=== PATIENT | female | born 1970 | race Caucasian/White ===

== ENCOUNTER → 2019-12-24 | Outpatient (CLI) | payer BC | END | disposition home or self-care (01) | LOC: LABWHC1 08:45 | PROVIDERS: ATTEND Radiology Radiation Oncology | DX: C50.212 Malignant neoplasm of upper-inner quadrant of left female breast (principal); Z17.0 Estrogen receptor positive status [ER+] | CPT/HCPCS: 81025 ==

== ENCOUNTER → 2020-09-04 | Outpatient (CLI) | payer BC ==
--- NOTE | 2020-09-05 10:50 | MM ---
Reason for exam: clinical finding. Last mammogram was performed 1 year and 3 months ago. History: Patient has history of breast cancer at age 49. Malignant excisional biopsy of the left breast. Lumpectomy of the left breast. Chemotherapy. Radiation therapy of the left breast. Physical Findings: Nurse Summary: 1.5-cm nodule in the left breast at 12 o'clock (nurse db). MG 3D Diag Mammo W/Cad OSORIO Bilateral CC and MLO view(s) were taken. Prior study comparison: May 31, 2019, mammogram. The breast tissue is heterogeneously dense. This may lower the sensitivity of mammography. No suspicious calcifications are seen. Stable post lumpectomy and radiation therapy changes. Focal asymmetry upper outer right breast. Deduction mammoplasty changes right breast. These results were verbally communicated with the patient and result sheet given to the patient on 09/04/20. ASSESSMENT: Incomplete: need additional imaging evaluation, BI-RAD 0 RECOMMENDATION: Ultrasound of both breasts.
--- NOTE | 2020-09-05 11:04 | USB ---
Reason for exam: additional evaluation requested from abnormal screening. History: Patient has history of breast cancer at age 49. Malignant excisional biopsy of the left breast. Lumpectomy of the left breast. Chemotherapy. Radiation therapy of the left breast. US Breast BILAT Right complete breast ultrasound includes all four quadrants, the retroareolar region and axilla. Finding demonstrates a 0.4 x 0.3 x 0.4cm lesion too small to characterize at 12 o'clock and a 0.5 x 0.7 x 0.5cm hypoechoic lesion at 12 o'clock, biopsy recommended. Left complete breast ultrasound includes all four quadrants, the retroareolar region and axilla. Finding demonstrates a 0.5 x 0.4 x 0.5cm lesion too small to characterize at 10 o'clock and a 1.0 x 1.0 x 1.0cm hypoechoic lesion at 11 o'clock, probable lumpectomy, 6 month follow up recommended. These results were verbally communicated with the patient and result sheet given to the patient on 09/04/20. ASSESSMENT: Suspicious, BI-RAD 4 Suspicious, BI-RAD 4 abnormality in the right breast. Probably benign, BI-RAD 3 finding in the left breast. RECOMMENDATION: Ultrasound core biopsy of the right breast. Manage patient on a clinical basis. Called office with mammographic findings and has scheduled an appointment for the patient for 09/29/20 at 10:[address] Booker. Biopsy scheduled for 09/19/20 at 10:30. PRELIMINARY REPORT CALLED AND FAXED TO DR. BOOKER ON 09/05/20. Ultrasound of the left breast in 6 months.
== END | disposition home or self-care (01) ==
LOC: RADUSWWP 12:41
PROVIDERS: ATTEND Internal Medicine Hematology & Oncology
DX: N64.52 Nipple discharge (principal); I89.0 Lymphedema, not elsewhere classified; Z85.3 Personal history of malignant neoplasm of breast
CPT/HCPCS: 77062; 77066

== ENCOUNTER → 2020-09-19 | Day surgery (SDC) | payer BC ==
[2020-09-19 10:01] VITALS: PULSE 78; TEMP 98.2
[2020-09-19 11:32] VITALS: BP 139/80; RESP 16
--- NOTE | 2020-09-19 15:33 | USB ---
EXAMINATION TYPE: US biopsy breast VAD RT, MG post biopsy diagnostic mammo RT wo CAD DATE OF EXAM: 09/19/2020 CLINICAL HISTORY: 50-year-old female R92.8 ABNORMAL MAMMOGRAM. Personal history of left breast cancer treated recently. TECHNIQUE: Ultrasound guided core biopsy of the right breast. COMPARISON: 09/04/2020 FINDINGS: The procedure of ultrasound guided core biopsy was explained to the patient. Benefits, alternatives, and risks were discussed. An informed consent was then obtained. The indeterminate hypoechoic area which appears vertically oriented on some of the images but more round and circumscribed on other images at the 12:00 position is identified for biopsy. The patient was placed in supine positioning for imaging and for the procedure. The overlying skin was prepped and draped in usual sterile fashion. Lidocaine was used for as anesthetic into the skin and subcutaneous tissue up to area of concern in the 12:00 right breast. Under ultrasound guidance, a 12-gauge vacuum assisted biopsy gun device was used to obtain 6 core samples. Following this, a wing clip was left in lesion. The patient tolerated the procedure well without any immediate complication. The patient was kept in the radiology department for short stay after the procedure and then discharged home in stable condition. Postprocedure mammogram shows the microclip in the 12:00 position just anterior to an area of focal asymmetry/island of dense tissue. IMPRESSION: Successful, uncomplicated ultrasound guided core biopsy of area of concern in the 12:00 right breast, full pathology results to follow. RECOMMENDATION: 1. Await pathology results of the ultrasound-guided right breast biopsy. If benign results, six-month follow-up mammogram can be performed. 2. Six-month follow-up ultrasound left breast 10:00 and 11:00 as recommended on 09/04/2020. The left o'clock palpable finding within the left breast probably corresponds to the patient's lumpectomy site. Pathology Results: Benign RIGHT BREAST, 12:00 POSITION, CORE BIOPSY: Mild chronic inflammation with peripheral blood elements, focal fibrosis, and focal microcalcification. Focal features suggestive of fat necrosis present. Current specimen negative for diagnostic in situ or invasive carcinoma. Recommendation Follow up ultrasound of the right breast in 6 months. THANIA
== END ==
LOC: RADUSWWP 09:29
PROVIDERS: ATTEND Internal Medicine Hematology & Oncology
DX: N61.0 Mastitis without abscess (principal); R92.0 Mammographic microcalcification found on diagnostic imaging of breast; N60.31 Fibrosclerosis of right breast; R92.8 Other abnormal and inconclusive findings on diagnostic imaging of breast; Z85.3 Personal history of malignant neoplasm of breast; Z88.0 Allergy status to penicillin
CPT/HCPCS: 88305; 77065; 19083; A4648; J2001

== ENCOUNTER → 2021-04-13 | Outpatient (CLI) | payer BC ==
--- NOTE | 2021-04-13 11:16 | MM ---
Reason for exam: follow-up at short interval from prior study. Last mammogram was performed 7 months ago. History: Patient is postmenopausal and has history of breast cancer at age 49. Benign US biopsy breast VAD RT of the right breast, September 19, 2020. Malignant excisional biopsy of the left breast. Lumpectomy of the left breast. Chemotherapy. Radiation therapy of the left breast. Taking antineoplastic for 2 years. Physical Findings: Nurse Summary: 0.5 x 1cm nodule in the left breast at 12 o'clock (nurse ts). MG 3D Diag Mammo W/Cad OSORIO Bilateral CC, MLO, and spot compression MLO view(s) were taken. ML and LM view(s) were taken of the left breast. Prior study comparison: September 19, 2020, right breast MG diagnostic mammo RT wo CAD. September 04, 2020, bilateral MG 3d diag mammo w/cad OSORIO. May 31, 2019, mammogram. There are scattered fibroglandular densities. There is chronic nodularity in the left breast medially. Post reduction mammoplasty changes. Superior posterior left MLO focal asymmetry disperses on additional views. 12 o'clock left palpable marker. Suspect a subtle area of developing fat necrosis underlying. These results were verbally communicated with the patient and result sheet given to the patient on 04/13/21. ASSESSMENT: Incomplete: need additional imaging evaluation, BI-RAD 0 RECOMMENDATION: Ultrasound of both breasts. (as ordered)
--- NOTE | 2021-04-13 11:19 | USB ---
Reason for exam: additional evaluation requested from abnormal screening. History: Patient is postmenopausal and has history of breast cancer at age 49. Benign US biopsy breast VAD RT of the right breast, September 19, 2020. Malignant excisional biopsy of the left breast. Lumpectomy of the left breast. Chemotherapy. Radiation therapy of the left breast. Taking antineoplastic for 2 years. US Breast BILAT Right complete breast ultrasound includes all four quadrants, the retroareolar region and axilla. Finding demonstrates a 0.3 x 0.3 x 0.4cm lesion too small to characterize at 12 o'clock. Left complete breast ultrasound includes all four quadrants, the retroareolar region and axilla. Finding demonstrates a 0.3 x 0.3 x 0.4cm lesion too small to characterize at 10 o'clock versus 5 x 4 x 4mm previously, follow up recommended and a 0.8 x 0.7 x 1.2cm mixed lesion at 11 o'clock versus 1.0 x 1.0 x 1.0cm previously, possibly early fat necrosis, continued follow up recommended. These results were verbally communicated with the patient and result sheet given to the patient on 04/13/21. ASSESSMENT: Probably benign, BI-RAD 3 RECOMMENDATION: Ultrasound of the left breast in 6 months.
== END | disposition home or self-care (01) ==
LOC: RADMAMWWP 08:06
PROVIDERS: ATTEND Internal Medicine Hematology & Oncology
DX: N64.89 Other specified disorders of breast (principal); Z85.3 Personal history of malignant neoplasm of breast; Z78.0 Asymptomatic menopausal state
CPT/HCPCS: 77062; 77066

== ENCOUNTER → 2021-10-12 | Outpatient (CLI) | payer BC ==
--- NOTE | 2021-10-12 15:31 | USB ---
Reason for Exam: Follow-up at short interval from prior study. Last screening mammogram was performed 6 month(s) ago. Patient History: Menarche at age 11. First Full-Term at age 24. Postmenopausal. Breast cancer, age 49. 2020, Bilateral Reduction. Malignant Excisional Biopsy on the left side. Lumpectomy on the Left side. 09/19/2020, Benign Core Biopsy on the right side. Chemotherapy. Radiation Therapy, left. Film Views: Left CC views were taken. Left MLO views were taken. Prior Study Comparison: 09/04/2020 Bilateral Diagnostic Mammogram, [facility]. 09/19/2020 Right Diagnostic Mammogram, [facility]. 04/13/2021 Bilateral Diagnostic Mammogram, [facility]. Tissue Density: Left: There are scattered fibroglandular densities. Findings: Analyzed By CAD. Mammogram Architectural distortion - There is architectural distortion in the upper outer quadrant of the left breast with clips and overlying skin thickening consistent with post treatment changes redemonstrated. Technique: Method: Targeted. Findings: The upper inner quadrant of the left breast and the area of palpable concern of the left breast were scanned. Breast Ultrasound . Overall Assessment: Benign, BI-RAD 2 Assessment: MG 3D diag mammo w/cad LT - Left: Benign, BI-RAD 2. US breast limited LT - Left: Benign, BI-RAD 2. Management: Diagnostic Mammogram of both breasts in 1 year. A clinical breast exam by your physician is recommended on an annual basis and results should be correlated with mammographic findings.
== END | disposition home or self-care (01) ==
LOC: RADMAMWWP 13:45
PROVIDERS: ATTEND Internal Medicine Hematology & Oncology
DX: R92.8 Other abnormal and inconclusive findings on diagnostic imaging of breast (principal); Z78.0 Asymptomatic menopausal state; Z92.3 Personal history of irradiation
CPT/HCPCS: 77061; 77065

== ENCOUNTER → 2022-04-14 | Outpatient (CLI) | payer BC ==
--- NOTE | 2022-04-14 14:44 | MM ---
Reason for Exam: Follow-up at short interval from prior study. Last screening mammogram was performed 12 month(s) ago. Patient History: Menarche at age 11. First Full-Term at age 24. Postmenopausal. Patient has history of breast feeding. Breast cancer, age 49. 2020, Bilateral Reduction. Malignant Excisional Biopsy on the left side. Lumpectomy on the Left side. 09/19/2020, Benign Core Biopsy on the right side. Chemotherapy. Radiation Therapy, left. Tissue Density: There are scattered fibroglandular densities. Analyzed By CAD. Overall Assessment: Negative, BI-RAD 1 Management: Diagnostic Mammogram of both breasts in 1 year. Electronically signed and approved by: Kenrick Chatman DO
== END | disposition home or self-care (01) ==
LOC: RADMAMWWP 11:00
PROVIDERS: ATTEND Internal Medicine Hematology & Oncology
DX: Z85.3 Personal history of malignant neoplasm of breast (principal); Z78.0 Asymptomatic menopausal state; Z90.12 Acquired absence of left breast and nipple
CPT/HCPCS: 77062; 77066

== ENCOUNTER 2022-06-05 17:36 | Emergency (ER) | payer BC ==
--- NOTE | 2022-06-05 18:25 | ED ---
General Adult HPI - General Chief complaint: Fall Stated complaint: fall - side pain Source: patient, family, RN notes reviewed Mode of arrival: ambulatory Limitations: no limitations - History of Present Illness Initial comments: The purpose of this note is for advanced triage purposes: 52-year-old female presents to the emergency department for evaluation of left-sided rib pain status post fall 90 minutes prior to arrival. Patient states she slipped and fell in the bathroom causing injury to the left side. Complains of pain and contusion along the lateral aspect of the left lower ribs. Reports pain with breathing and movement. Did not take anything to treat her symptoms prior to arrival. Denies any other injuries or complaints at this time. States she did not hit her head. Does not take blood thinning medicines. No neck or back pain. - Related Data Home Medications Medication Instructions Recorded Confirmed Anastrozole [Arimidex] 1 mg PO DAILY 09/15/20 06/05/22 lisinopriL [Prinivil] 10 mg PO DAILY 09/15/20 06/05/22 Alendronate Sodium [Fosamax] 70 mg PO WE 06/05/22 06/05/22 DULoxetine HCL [Cymbalta] 30 mg PO BID 06/05/22 06/05/22 Ergocalciferol [Vitamin D2 (1250 1,250 mcg PO FR 06/05/22 06/05/22 Mcg = [id number] Iu)] Vitamin D3 + Vitamin K2 1 tab PO DAILY 06/05/22 06/05/22 Previous Rx's Medication Instructions Recorded Cyclobenzaprine [Flexeril] 10 mg PO TID PRN #15 tab 06/05/22 Lidocaine 5% Patch [Lidoderm 5% 1 each TP DAILY PRN 7 Days #7 patch 06/05/22 Patch] Allergies Allergy/AdvReac Type Severity Reaction Status Date / Time Penicillins Allergy Rash/Hives Verified 06/05/22 21:23 Review of Systems ROS Statement: Those systems with pertinent positive or pertinent negative responses have been documented in the HPI. ROS Other: All systems not noted in ROS Statement are negative. Past Medical History Past Medical History: Cancer, Hypertension Additional Past Medical History / Comment(s): Hx of breast cancer 2019. Lumpectomy/radiation/chemo History of Any Multi-Drug Resistant Organisms: None Reported Past Surgical History: Breast Surgery Past Anesthesia/Blood Transfusion Reactions: No Reported Reaction Past Psychological History: No Psychological Hx Reported Smoking Status: Never smoker Past Alcohol Use History: Rare Past Drug Use History: None Reported General Exam Limitations: no limitations General appearance: alert, in distress (Well-developed, well-nourished female in moderate distress due to pain.) ENT exam: Present: normal exam, mucous membranes moist Neck exam: Present: normal inspection, full ROM Respiratory exam: Present: normal lung sounds bilaterally, chest wall tenderness (Left lateral chest wall tenderness along the lower rib border with developing contusion. There is bony crepitus.). Absent: respiratory distress, wheezes, rales, rhonchi, stridor Cardiovascular Exam: Present: regular rate, normal rhythm, normal heart sounds. Absent: systolic murmur, diastolic murmur, rubs, gallop, clicks GI/Abdominal exam: Present: soft, normal bowel sounds. Absent: distended, tenderness, guarding, rebound, rigid Back exam: Absent: paraspinal tenderness, vertebral tenderness Neurological exam: Present: alert, oriented X3, normal gait Psychiatric exam: Present: anxious Course Vital Signs 06/05/22 06/05/22 06/06/22 18:03 19:45 00:00 Temperature 98 F 98.6 F 98.6 F Pulse Rate 57 L 76 78 Respiratory 24 20 16 Rate Blood Pressure 92/60 136/104 128/68 O2 Sat by Pulse 99 99 99 Oximetry - Reevaluation(s) Reevaluation #1: 06/05/22 19:57 Upon reassessment, patient continues to appear uncomfortable. She has pain with movement and deep breathing. Requesting Tylenol for pain. Discussed possible hospital admission for multiple rib fractures, though patient declines emphatically. Will treat pain and reassess. 06/05/22 22:03 Lengthy discussion had with patient upon reevaluation. Patient reports signifi cant improvement with Dilaudid and still prefers discharge home. Discussed precautions, return parameters, follow-up care, and red flag symptoms. Laboratory studies are pending as patient was a difficult stick. We will reassess. 06/05/22 23:43 Upon reassessment, patient reports pain improvement and readiness for discharge. Patient's care discussed at length. Shared decision making to discharge patient home with strict return parameters. Medical Decision Making - Medical Decision Making This is a pleasant 52-year-old female who presents to the emergency department for evaluation of left-sided rib injury status post slip and fall in the bathtub. Upon exam, patient is initially anxious, mildly tachypneic and uncomfortable. Contusion noted on the left lateral chest wall. There is tenderness upon palpation. Rib x-ray shows fractures of ribs 5, 6, and 7. Chest x-ray shows area of atelectasis in the left lower lobe likely to be pulmonary contusion. Patient was given Dilaudid, Flexeril, and [place] for pain with significant improvement. Patient discussed preference for discharge and declined hospital admission. Shared decision making, she was discharged home with lengthy instructions on symptomatic management and strict return parameters. Incentive spirometry demonstrated. Patient verbalizes understanding and agrees with this plan. Attending: Ruba Was pt. sent in by a medical professional or institution? @ -No Did you speak to anyone other than the patient for history? @ -Spouse Did you review nursing and triage notes? @ -Yes, agree Were old charts reviewed? @ -No Differential Diagnosis? @ -Chest wall contusion, costochondritis, rib fracture, pulmonary contusion, this is not meant to be an exhaustive list EKG interpreted by me (3pts min.)? @ -Not applicable X-rays interpreted by me (1pt min.)? @ -Not applicable CT interpreted by me (1pt min.)? @ -Not applicable U/S interpreted by me (1pt. min.)? @ -Not applicable What testing was considered but not performed? (CT, X-rays, U/S, labs)? Why? @ -Considered x-ray of the left shoulder given patient's symptoms of injury, however she is able to move the upper extremity freely. What meds were considered but not given? Why? @ -None Did you discuss the management of the patient with other professionals? @ -None Did you reconcile home meds? @ -No Was smoking cessation discussed for >3mins.? @ -No Was critical care preformed (if so, how long)? @ -No Were there social determinants of health that impacted care today? How? (Homelessness, low income, unemployed, alcoholism, drug addiction, transportation, low edu. Level, literacy, decrease access to med. care, custodial, rehab)? @ -No Was there de-escalation of care discussed even if they declined? (Discuss DNR or withdrawal of care, Hospice)? @ -No What co-morbidities impacted this encounter? (DM, HTN, Smoking, COPD, CAD, Cancer, CVA, Hep., AIDS, mental health diagnosis, sleep apnea, morbid obesity)? @ -History of left-sided mastectomy. Was patient admitted / discharged? @ -Discharged Undiagnosed new problem with uncertain prognosis? @ -None Drug Therapy requiring intensive monitoring for toxicity (Heparin, Nitro, Insulin, Cardizem)? @ -None Were any procedures done? @ -None Diagnosis/symptom? @ -Rib fractures, left Acute, or Chronic, or Acute on Chronic? @ -Acute Uncomplicated (without systemic symptoms) or Complicated (systemic symptoms)? @ -Uncomplicated Side effects of treatment? @ -None Exacerbation, Progression, or Severe Exacerbation] @ -No Poses a threat to life or bodily function? @ -No Diagnosis/symptom? @ -Pulmonary contusion Acute, or Chronic, or Acute on Chronic? @ -Acute Uncomplicated (without systemic symptoms) or Complicated (systemic symptoms)? @ -Uncomplicated Side effects of treatment? @ -None Exacerbation, Progression, or Severe Exacerbation] @ -No Poses a threat to life or bodily function? @ -No - Lab Data Result diagrams: 06/05/22 22:14 06/05/22 22:14 Lab Results 06/05/22 06/05/22 Range/Units 22:14 22:14 WBC 13.9 H (3.8-10.6) k/uL RBC 4.81 (3.80-5.40) m/uL Hgb 14.7 (11.4-16.0) gm/dL Hct 44.0 (34.0-46.0) % MCV 91.5 (80.0-100.0) fL MCH 30.6 (25.0-35.0) pg MCHC 33.4 (31.0-37.0) g/dL RDW 12.9 (11.5-15.5) % Plt Count 241 (150-450) k/uL MPV 7.9 Neutrophils % 92 % Lymphocytes % 5 % Monocytes % 3 % Eosinophils % 0 % Basophils % 0 % Neutrophils # 12.7 H (1.3-7.7) k/uL Lymphocytes # 0.7 L (1.0-4.8) k/uL Monocytes # 0.4 (0-1.0) k/uL Eosinophils # 0.0 (0-0.7) k/uL Basophils # 0.0 (0-0.2) k/uL Sodium 140 (137-145) mmol/L Potassium 4.6 (3.5-5.1) mmol/L Chloride 109 H (98-107) mmol/L Carbon Dioxide 22 (22-30) mmol/L Anion Gap 9 mmol/L BUN 29 H (7-17) mg/dL Creatinine 0.65 (0.52-1.04) mg/dL Est GFR (CKD-EPI)AfAm >90 (>60 ml/min/1.73 sqM) Est GFR (CKD-EPI)NonAf >90 (>60 ml/min/1.73 sqM) Glucose 92 (74-99) mg/dL Calcium 9.5 (8.4-10.2) mg/dL Total Bilirubin 0.4 (0.2-1.3) mg/dL AST 26 (14-36) U/L ALT 22 (4-34) U/L Alkaline Phosphatase 99 (38-126) U/L Total Protein 7.3 (6.3-8.2) g/dL Albumin 4.6 (3.5-5.0) g/dL - Radiology Data Radiology results: report reviewed, image reviewed Interpreted by me: Rib x-ray as interpreted by me shows multiple left lateral rib fractures X-ray of the left ribs was obtained. Report was reviewed in its entirety. Impression per Dr. Meneses his multiple acute rib fractures with infiltrate and atelectasis left lower lobe. Minimal soft tissue are on the left lateral chest wall. No pneumothorax seen. Two-view chest x-ray was obtained. Report was reviewed in its entirety. Impression per Dr. Meneses his left lower rib infiltrate and atelectasis. Left-sided rib fracture. Disposition Clinical Impression: Ribs, multiple fractures, Pulmonary contusion Disposition: HOME SELF-CARE Condition: Serious Instructions (If sedation given, give patient instructions): Rib Fracture (ED), Pulmonary Contusion (ED) Additional Instructions: Utilize incentive spirometer as demonstrated 10 times per hour. Hug pillow to support chest when coughing and deep breathing. Take pain medication if needed. Flexeril is a muscle relaxer which may make you groggy. Lidocaine is a topical agent for pain. Be very careful to avoid any falls or injury. Rest. Make position changes slowly and carefully. I expect that you will be very sore tomorrow. Follow-up with your PCP as scheduled. Return to the emergency department with any shortness of breath, difficulty breathing, uncontrolled pain, or any other concerning symptoms. Prescriptions: Cyclobenzaprine [Flexeril] 10 mg PO TID PRN #15 tab PRN Reason: Muscle Spasm Lidocaine 5% Patch [Lidoderm 5% Patch] 1 each TP DAILY PRN 7 Days #7 patch PRN Reason: Pain Is patient prescribed a controlled substance at d/c from ED?: No Referrals: Chris Flores MD [Primary Care Provider] - 1-2 days Time of Disposition: 23:44
--- NOTE | 2022-06-05 19:15 | XR ---
EXAMINATION TYPE: XR chest 2V DATE OF EXAM: 06/05/2022 COMPARISON: NONE HISTORY: Pain. Fall. TECHNIQUE: 2 views FINDINGS: There is some infiltrate and atelectasis left lower lobe. Heart size is normal. No heart fa ilure. No evidence of pneumothorax. There is fracture of the posterior left seventh rib with mild dis placement 50%. IMPRESSION: Left lower lobe infiltrate and atelectasis. Left-sided rib fracture.
--- NOTE | 2022-06-05 19:25 | XR ---
EXAMINATION TYPE: XR ribs LT DATE OF EXAM: 06/05/2022 COMPARISON: NONE HISTORY: Fall. Rib pain TECHNIQUE: 4 views FINDINGS: There are fractures of the posterior lateral left fifth and sixth and seventh ribs. There i s minimal soft tissue air adjacent to the rib fractures. There is infiltrate and atelectasis left [place]il[place] g base. No pneumothorax. Left shoulder appears intact. IMPRESSION: Multiple acute rib fractures with infiltrate and atelectasis left lower lobe. Minimal sof t tissue air on the left lateral chest wall. No pneumothorax seen.
[2022-06-05 19:46] VITALS: TEMP 98.6
[2022-06-05] MEDS ORDERED: SODIUM CHLORIDE 0.9% 1,000 ML IV STA (19:56)
[2022-06-05] MEDS ORDERED: ONDANSETRON 4 MG/2 ML VIAL IVP STA (19:56)
[2022-06-05] MEDS ORDERED: HYDROmorphone 0.5 MG/0.5 ML SYRINGE IVP STA (19:56)
[2022-06-05] MEDS ORDERED: LIDOCAINE 5% PATCH TOPICAL SCH (20:00)
[2022-06-05] MEDS ORDERED: CYCLOBENZAPRINE 10 MG TAB PO STA (21:59)
[2022-06-05 22:25] LABS: Basophils % (A) 0 %; Eosinophils % (A) 0 %; HGB 14.7 gm/dL (11.4-16.0); Lymphocytes # (A) 0.7 k/uL (1.0-4.8); Lymphocytes % (A) 5 %; MCH 30.6 pg (25.0-35.0); MCHC 33.4 g/dL (31.0-37.0); MCV 91.5 fL (80.0-100.0); Mean Platelet Volume 7.9; Monocytes # (A) 0.4 k/uL (0-1.0); Monocytes % (A) 3 %; Neutrophils # (A) 12.7 k/uL (1.3-7.7); Neutrophils % (A) 92 %; Platelet Count 241 k/uL (150-450); RBC 4.81 m/uL (3.80-5.40); RDW 12.9 % (11.5-15.5); WBC 13.9 k/uL (3.8-10.6)
[2022-06-05 22:38] LABS: ALT 22 U/L (4-34); AST 26 U/L (14-36); African American GFR (CKD) >90 (>60 ml/min/1.73 sqM); Albumin 4.6 g/dL (3.5-5.0); Alkaline Phosphatase 99 U/L (38-126); Anion Gap 9 mmol/L; Blood Urea Nitrogen 29 mg/dL (7-17); Calcium 9.5 mg/dL (8.4-10.2); Carbon Dioxide 22 mmol/L (22-30); Chloride 109 mmol/L (98-107); Glucose 92 mg/dL (74-99); Non-African American GFR(CKD) >90 (>60 ml/min/1.73 sqM); Potassium 4.6 mmol/L (3.5-5.1); Sodium 140 mmol/L (137-145); Total Bilirubin 0.4 mg/dL (0.2-1.3); Total Protein 7.3 g/dL (6.3-8.2)
[2022-06-05] MEDS ORDERED: ACET/COD 300 MG/30 MG STARTER PACK 6 TAB BTL PO STA (23:17)
[2022-06-05] MEDS ORDERED: HYDROcodone/APAP 7.5-325MG 1 EACH TAB PO ONE (23:43)
[2022-06-06 01:59] VITALS: BP 128/68; PULSE 78; RESP 16
== END 2022-06-06 00:14 | disposition home or self-care (01) ==
LOC: EC 17:36
DX: S22.32XA Fracture of one rib, left side, initial encounter for closed fracture (principal); S27.321A Contusion of lung, unilateral, initial encounter; I10 Essential (primary) hypertension; Z88.0 Allergy status to penicillin; Z79.899 Other long term (current) drug therapy; W18.11XA Fall from or off toilet without subsequent striking against object, initial encounter; Y92.091 Bathroom in other non-institutional residence as the place of occurrence of the external cause
CPT/HCPCS: 36415; 80053; 85025; 71100; 71046; 99284; 96374; 96375; 96361; J2405; J1170

== ENCOUNTER → 2023-04-06 | Outpatient (CLI) | payer BC ==
--- NOTE | 2023-04-06 13:20 | MM ---
Reason for Exam: Screening (asymptomatic). Last screening mammogram was performed 12 month(s) ago. Patient History: Menarche at age 11. First Full-Term at age 24. Postmenopausal. Patient has history of breast feeding. Breast cancer, age 49. 2020, Bilateral Reduction. Malignant Excisional Biopsy on the left side. Lumpectomy on the Left side. 09/19/2020, Benign Core Biopsy on the right side. Chemotherapy. Radiation Therapy, left. Prior Study Comparison: 04/13/2021 Bilateral Diagnostic Mammogram, [facility]. 10/12/2021 Left MG 3D diag mammo w/cad LT, [facility]. 04/14/2022 Bilateral MG 3D diag mammo w/cad OSORIO, [facility]. Tissue Density: There are scattered fibroglandular densities. Findings: Analyzed By CAD. Postsurgical and posttreatment change left breast. There are several new grouped calcifications at the 12:00 posterior surgical site. Otherwise, no significant change. Overall Assessment: Incomplete: need additional imaging evaluation, BI-RAD 0 Management: Diagnostic Mammogram of the left breast. Electronically signed and approved by: Chidi Nguyen M.D. Radiologist
--- NOTE | 2023-04-06 13:22 | MM ---
Reason for Exam: Additional evaluation requested from abnormal screening. Last screening mammogram was performed 12 month(s) ago. Patient History: Menarche at age 11. First Full-Term at age 24. Postmenopausal. Patient has history of breast feeding. Breast cancer, age 49. 2020, Bilateral Reduction. Malignant Excisional Biopsy on the left side. Lumpectomy on the Left side. 09/19/2020, Benign Core Biopsy on the right side. Chemotherapy. Radiation Therapy, left. Prior Study Comparison: 04/13/2021 Bilateral Diagnostic Mammogram, [facility]. 10/12/2021 Left MG 3D diag mammo w/cad LT, [facility]. 04/14/2022 Bilateral MG 3D diag mammo w/cad OSORIO, [facility]. Tissue Density: Left: There are scattered fibroglandular densities. Findings: Analyzed By CAD. Post surgical site within the scar and surgical clips posterior 12:00 left breast. There is a small group of heterogeneous calcifications that have developed here, possible early fat necrosis calcifications but indeterminate at this time. Six-month follow-up recommended to reassess. Overall Assessment: Probably benign, BI-RAD 3 Management: Diagnostic Mammogram of the left breast in 6 months. For possible early fat necrosis calcification at the surgical site. Results were given to the patient verbally at the time of exam. Patient should continue monthly self-breast exams. A clinical breast exam by your physician is recommended on an annual basis. This exam should not preclude additional follow-up of suspicious palpable abnormalities. Electronically signed and approved by: Chidi Nguyen M.D. Radiologist
== END | disposition home or self-care (01) ==
LOC: RADMAMWWP 12:30
PROVIDERS: ATTEND Internal Medicine Hematology & Oncology
DX: Z12.31 Encounter for screening mammogram for malignant neoplasm of breast (principal); R92.322 Mammographic fibroglandular density, left breast; Z78.0 Asymptomatic menopausal state; Z85.3 Personal history of malignant neoplasm of breast
CPT/HCPCS: 77061; 77063; 77065; 77067

== ENCOUNTER → 2023-10-06 | Outpatient (CLI) | payer BC ==
--- NOTE | 2023-10-06 09:50 | MM ---
Reason for Exam: Follow-up at short interval from prior study. Last screening mammogram was performed 6 month(s) ago. Patient History: Menarche at age 11. First Full-Term at age 24. Postmenopausal. Patient has history of breast feeding. Breast cancer, age 49. 2020, Bilateral Reduction. Malignant Excisional Biopsy on the left side. Lumpectomy on the Left side. 09/19/2020, Benign Core Biopsy on the right side. Chemotherapy. Radiation Therapy, left. Prior Study Comparison: 04/14/2022 Bilateral MG 3D diag mammo w/cad OSORIO, [facility]. 04/06/2023 Left MG 3D work up w/cad LT, [facility]. 04/06/2023 Bilateral MG 3D screening mammo w/cad, [facility]. Tissue Density: Left: There are scattered areas of fibroglandular density. Findings: Analyzed By CAD. Postsurgical and posttreatment changes left breast. Redemonstrated small grouped calcifications at the 12:00 posterior lumpectomy site. There is a very slight interval progression in these small heterogeneous calcifications. Still suspected to represent early fat necrosis. Ongoing short interval follow-up recommended. Overall Assessment: Probably benign, BI-RAD 3 Management: Diagnostic Mammogram of both breasts in 6 months. Total one year follow-up left breast and annual exam of the right breast. Results were given to the patient verbally at the time of exam. Patient should continue monthly self-breast exams. A clinical breast exam by your physician is recommended on an annual basis. This exam should not preclude additional follow-up of suspicious palpable abnormalities. Electronically signed and approved by: Chidi Nguyen M.D. Radiologist
== END | disposition home or self-care (01) ==
LOC: RADMAMWWP 09:22
PROVIDERS: ATTEND Internal Medicine Hematology & Oncology
DX: R92.8 Other abnormal and inconclusive findings on diagnostic imaging of breast (principal); R92.322 Mammographic fibroglandular density, left breast; Z78.0 Asymptomatic menopausal state
CPT/HCPCS: 77061; 77065

== ENCOUNTER → 2024-04-13 | Outpatient (CLI) | payer BC ==
--- NOTE | 2024-04-15 22:13 | BD ---
EXAMINATION TYPE: Axial Bone Density DATE OF EXAM: 04/13/2024 CLINICAL HISTORY: 54 years old Female. ICD-10 CODE: C50.212 left breast cancer , Additional History: Height: 68" Weight: 180lbs FRAX RISK QUESTIONS: Alcohol (3 or more units per day): No Family History (Parent hip fracture): No Glucocorticoids (More than 3mos): No (Ex: prednisone, prednisolone, methylprednisolone, dexamethasone, and hydrocortisone). History of Fracture in Adulthood: No Secondary Osteoporosis: 1. Type 1 Diabetes: No 2. Hyperthyroidism: No 3. Menopause before 45: No 4. Malnutrition: No 5. Chronic liver disease: No Rheumatoid Arthritis: No Current Tobacco Use: No RISK FACTORS HISTORY OF: Hip Fracture (Right/Left): No Spine Fracture: No History of Wrist Fracture: No Surgery to Spine/Hip(right/left)/Wrist (right/left): No MEDICATIONS: Thyroid Medications: No Osteoporosis Medications: No EXAM MEASUREMENTS: Bone mineral densitometry was performed using the [employer]. Bone mineral density as measured about the Lumbar spine is: ----- L1-L4(G/cm2): 1.253 T Score Values are as follows: ----- L1: 0.1 ----- L2: 0.3 ----- L3: 0.9 ----- L4: 0.9 ----- L1-L4: 0.6 Z Score Values are as follows: ----- L1: 0.3 ----- L2: 0.5 ----- L3: 1.1 ----- L4: 1.2 ----- L1-L4: 0.9 Baseline @ [facility] Bone mineral density about the R hip (g/cm2): 1.071 Bone mineral density about the L hip (g/cm2): 1.072 T Score values are as follows: -----R Neck: 0.0 -----L Neck: 0.1 -----R Total: 0.5 -----L Total: 0.5 Z Score values are as follows: -----R Neck: 0.7 -----L Neck: 0.7 -----R Total: 0.8 -----L Total: 0.8 Baseline @ [facility] FRAX%s: The graph provided illustrates a 5.1chance for a major osteoporotic fx and a 0.1chance for th e hips probability for fx in 10 years time. IMPRESSION: Normal (Values between +1 and -1 indicate normal bone mass). Consider repeating this study in 5 year s or sooner if there is some new clinical indication. NOTE: T-SCORE=SD OF THE YOUNG ADULT MEAN. [facility], , 04/15/2024 10:10 PM
--- NOTE | 2024-04-24 12:54 | MM ---
Reason for Exam: Follow-up at short interval from prior study. Last screening mammogram was performed 12 month(s) ago. Indicated Problems: Pain of the left side (Focal) for 1 Month(s). Patient History: Menarche at age 11. First Full-Term at age 24. Postmenopausal. Patient has history of breast feeding. Breast cancer, left, age 49. 2020, Bilateral Reduction. Malignant Excisional Biopsy on the left side. Lumpectomy on the Left side. 09/19/2020, Benign Core Biopsy on the right side. Chemotherapy. Radiation Therapy, left. Tissue Density: There are scattered areas of fibroglandular density. Findings: Analyzed By CAD. The pattern is symmetrical. Post lumpectomy changes are within the upper outer left breast appears stable in comparison on this is at the area patient feels a "pulling sensation" No suspicious groups of microcalcifications, spiculated or lobular masses, architectural distortion or other secondary signs of malignancy are mammographically apparent. Overall Assessment: Benign, BI-RAD 2 Management: Diagnostic Mammogram of both breasts in 1 year. A negative mammogram report should not preclude additional follow up of suspicious palpable abnormalities. Patient should continue monthly self breast exam. A clinical breast exam by your physician is recommended on an annual basis and results should be correlated with mammographic findings. Note on Greer scores and lifetime risk: 1. A Greer score greater than 3% is considered moderate risk. If this is the case, consider specialist referral to assess eligibility for a risk reducing agent. 2. If overall lifetime risk for the development of breast cancer is 20% or higher, the patient may qualify for future screening with alternating mammogram and breast MRI. [facility], , 04/13/2024 1:25 PM. Electronically signed and approved by: Mitul Holliday D.O. Radiologis
== END | disposition home or self-care (01) ==
LOC: RADMAMWWP 13:00
PROVIDERS: ATTEND Internal Medicine Hematology & Oncology
DX: C50.212 Malignant neoplasm of upper-inner quadrant of left female breast (principal); R92.323 Mammographic fibroglandular density, bilateral breasts; M25.50 Pain in unspecified joint; I10 Essential (primary) hypertension; Z71.3 Dietary counseling and surveillance; Z78.0 Asymptomatic menopausal state
CPT/HCPCS: 77062; 77066; 77080